=== PATIENT | male | born 1990 ===

== ENCOUNTER 2024-03-02 21:08 | Emergency (ER) | payer SELFPAY ==
[~2024-03-02] VITALS: Ht 170.2 cm; Wt 79.4 kg
[2024-03-02] MEDS ORDERED: LIDOCAINE 2% (GLYDO= UROJET) 10 ML JELLY MM ONE (21:21)
[2024-03-02] MEDS: LIDOCAINE 2% (GLYDO= UROJET) 10 ML JELLY MM ONE (21:34)
[2024-03-02] MEDS: IV NORMAL SALINE 1000 ML BAG IV ONE (21:34)
[2024-03-02 22:03] LABS: BASOPHILS % (AUTO) 0.5 % (0.0-2.0); EOSINOPHILS # (AUTO) 0.2 K/uL (0.0-0.7); EOSINOPHILS % (AUTO) 1.8 % (0.0-7.0); HEMATOCRIT 45.6 % (36.7-47.1); HEMOGLOBIN 15.5 g/dL (12.5-16.3); LYMPHOCYTES % (AUTO) 40.6 % (20.5-51.5); MEAN CORPUSCULAR HEMOGLOBIN 32.7 uug (23.8-33.4); MEAN CORPUSCULAR HGB CONC 34 g/dL (32.5-36.3); MEAN CORPUSCULAR VOLUME 96.1 fL (73.0-96.2); MONOCYTES % (AUTO) 9.9 % (0.0-11.0); NEUTROPHILS # (AUTO) 4.6 K/uL (1.8-8.9); NEUTROPHILS % (AUTO) 47.2 % (38.5-71.5); PLATELET COUNT (AUTO) 234 K/uL (152-348); RED BLOOD CELL COUNT(AUTO) 4.74 MIL/uL (4.06-5.63); WHITE BLOOD COUNT (AUTO) 9.7 K/uL (3.6-10.2)
[2024-03-02 22:06] LABS: *BILIRUBIN,URIN NEGATIVE (NEGATIVE); *CLARITY,URINE CLEAR (CLEAR); *COLOR,URINE YELLOW (YELLOW); *KETONES,URINE NEGATIVE (NEGATIVE); *PROTEIN,URINE 3+ (NEGATIVE); *UROBILINOGEN,URINE 0.2 E.U./dl (NORMAL); LEUKOCYTE ESTERASE ,URINE NEGATIVE (NEGATIVE); NITRITE, URINE NEGATIVE (NEGATIVE); PH,URINE 5.5 (5.0-8.0); UGLUCOSE NEGATIVE (NEGATIVE)
[2024-03-02 22:12] LABS: *BLOOD, URINE TRACE INTACT (NEGATIVE)
[2024-03-02 22:14] LABS: CALCIUM 8.6 mg/dL (8.5-10.1); CARBON DIOXIDE 22 mmol/L (21-32); CHLORIDE 107 mmol/L (98-107); GLUCOSE 101 mg/dL (74-106); POTASSIUM 3.3 mmol/L (3.5-5.1); SODIUM SERUM 144 mmol/L (136-145); UREA NITROGEN, BLOOD 9 mg/dL (7-18)
[2024-03-02 22:15] LABS: AMMONIA 25 umol/L (11-32)
[2024-03-02 22:22] LABS: ALANINE AMINOTRANSFERASE 38 U/L (16-63); ALBUMIN 3.6 g/dL (3.4-5.0); ALKALINE PHOSPHATASE 64 U/L (50-136); ASPARTATE AMINOTRANSFERASE 32 U/L (15-37); BILIRUBIN,DIRECT 0.1 mg/dL (0.0-0.2); BILIRUBIN,TOTAL 0.4 mg/dL (0.2-1.0); TOTAL PROTEIN, SERUM 7.9 g/dL (6.4-8.2)
[2024-03-02 22:24] LABS: ACETAMINOPHEN < 10.0 ug/mL (10-30)
[2024-03-02 22:24] LABS: RBC,URINE 0-3 /HPF (0-3)
[2024-03-02 22:25] LABS: BACTERIA,URINE FEW /HPF (NONE SEEN); SQUAMOUS EPITHELIAL CELL,UR MODERATE /HPF (NONE SEEN)
[2024-03-02 22:36] LABS: ETHANOL 515 MG/DL (0-10)
[2024-03-02 22:40] LABS: *AMPHETAMINE, URINE NEGATIVE (NEGATIVE); *BARBITURATE, URINE NEGATIVE (NEGATIVE); *BENZODIAZEPINE, URINE NEGATIVE (NEGATIVE); *CANNABINOID, URINE POSITIVE (NEGATIVE); *COCCAINE, URINE NEGATIVE (NEGATIVE); *OPIATE, URINE NEGATIVE (NEGATIVE); *PHENCYCLIDINE SCREEN,URINE NEGATIVE (NEGATIVE); FENTANYL, URINE NEGATIVE (NEGATIVE)
[2024-03-03 06:35] VITALS: BP 110/64; O2SAT 93
== END 2024-03-03 06:35 | disposition home or self-care (01) ==
LOC: ER 21:12 → EDBD 21:12 → ER 03-03 06:35
DX: F10.121 Alcohol abuse with intoxication delirium (principal); R07.89 Other chest pain; R51.9 Headache, unspecified; M54.2 Cervicalgia; Y90.8 Blood alcohol level of 240 mg/100 ml or more
CPT/HCPCS: 80076; 80048; 81001; 82140; 84443; 85025; 84484 ×2; 36415; 93005; 71045; 70450; 72125; 99285; 96360; 80299; 80320; 80307; J7040 ×2; A4606; A4663; C1758; G0480